=== PATIENT | male | born 1990 | race Caucasian/White ===

== ENCOUNTER 2017-09-05 08:10 | Emergency (ER) | payer BC, MEDICAID, OTHER ==
[~2017-09-05] VITALS: Ht 180.3 cm; Wt 73.5 kg
[2017-09-05 08:31] VITALS: BP 109/71
[2017-09-05] MEDS ORDERED: CEFTRIAXONE 250 MG ONE (09:16)
[2017-09-05] MEDS ORDERED: AZITHROMYCIN 250 MG TABLET ONE (09:27)
[2017-09-05] MEDS ORDERED: AZITHROMYCIN 250 MG TABLET PO ONE (09:30)
[2017-09-05] MEDS ORDERED: CEFTRIAXONE 250 MG IM ONE (09:30)
[2017-09-05] MEDS ORDERED: AZITHROMYCIN 500 MG TABLET PO ONE (09:30)
[2017-09-05 09:50] LABS: MICROSCOPIC AUTO
[2017-09-05 09:51] LABS: CULTURE INDICATED? YES
== END 2017-09-05 10:26 | disposition home or self-care (01) ==
LOC: ED 10:25
DX: A54.9 Gonococcal infection, unspecified (principal); A56.01 Chlamydial cystitis and urethritis
CPT/HCPCS: 81001; 87086; 96372; 99284; J0696

== ENCOUNTER 2019-09-27 06:14 | Inpatient (IN) | payer MEDICAID, OTHER ==
[~2019-09-27] VITALS: Ht 180.3 cm; Wt 78.0 kg
[2019-09-27] MEDS ORDERED: OLAN5TAB3 PO (06:30)
[2019-09-27] MEDS ORDERED: OLAN10TA3 PO (06:30)
[2019-09-27 06:31] VITALS: BP 113/72
[2019-09-27] MEDS ORDERED: LACTATED RINGERS 1,000 ML IV SCH (06:45)
[2019-09-27] MEDS ORDERED: MIDAZOLAM 1 MG/ML, 2ML ONE (07:42)
[2019-09-27] MEDS ORDERED: FENTANYL PF 100 MCG/2ML ONE (07:42)
[2019-09-27] MEDS ORDERED: LIDOCAINE-MPF 2% ,5ML ONE (07:42)
[2019-09-27] MEDS ORDERED: CEFAZOLIN 1,000 MG ONE ×2 (07:42)
[2019-09-27] MEDS ORDERED: SODIUM CHLORIDE 0.9% PF 10ML ONE (07:43)
[2019-09-27] MEDS ORDERED: PROPOFOL 10 MG/ML, 20ML ONE (07:45)
[2019-09-27] MEDS ORDERED: hydrALAzine 20 MG/ML, 1ML IV PRN (08:00)
[2019-09-27] MEDS ORDERED: PROMETHAZINE 25 MG/ML, 1ML IV PRN (08:00)
[2019-09-27] MEDS ORDERED: EPHEDRINE 50 MG/ML, 1ML IVPush PRN (08:00)
[2019-09-27] MEDS ORDERED: OXYcodone 5 MG/5 ML ORAL.SOL UDC PO PRN (08:00)
[2019-09-27] MEDS ORDERED: MEPERIDINE/PF 25MG/ML,1ML IVPush PRN (08:00)
[2019-09-27] MEDS ORDERED: ONDANSETRON 2MG/ML, 2ML IV PRN ×2 (08:00→08:30)
[2019-09-27] MEDS ORDERED: ACETAMINOPHEN 500 MG TABLET PO ONE (08:00)
[2019-09-27] MEDS ORDERED: HYDROmorphone 2 MG/ML, 1ML IVPush PRN (08:00)
[2019-09-27] MEDS ORDERED: GABAPENTIN 300 MG CAPSULE PO ONE (08:00)
[2019-09-27] MEDS ORDERED: LABETALOL 5MG/ML, 20ML IV PRN (08:00)
[2019-09-27] MEDS ORDERED: FENTANYL PF 100 MCG/2ML IV PRN (08:00)
[2019-09-27] MEDS ORDERED: KETOROLAC 30 MG/1 ML ONE (08:07)
[2019-09-27] MEDS ORDERED: DEXAMETHASONE 4 MG/ML, 1ML ONE ×2 (08:07)
[2019-09-27] MEDS ORDERED: ONDANSETRON 2MG/ML, 2ML ONE (08:08)
[2019-09-27] MEDS ORDERED: SENNA/DOCUSATE TABLET PO PRN (08:30)
[2019-09-27] MEDS ORDERED: BISACODYL 10 MG SUPP PR PRN (08:30)
[2019-09-27] MEDS ORDERED: MEPERIDINE/PF 25MG/ML,1ML ONE (08:47)
[2019-09-27] MEDS ORDERED: OXYcodone 5 MG/5 ML ORAL.SOL UDC ONE (08:47)
[2019-09-27] MEDS: ACETAMINOPHEN 325 MG TABLET PO PRN ×2 (13:32→20:41)
[2019-09-27] MEDS: MULTIVITAMINS/MINERALS TABLET PO SCH (13:33)
[2019-09-27] MEDS: DOCUSATE 100 MG CAPSULE PO SCH ×2 (13:33→20:41)
[2019-09-27 14:11] VITALS: BP 119/62
[2019-09-27] MEDS: KETOROLAC 30 MG/1 ML IV SCH (16:40)
[2019-09-27] MEDS: CEFAZOLIN PMX 1GM/50ML 50 ML IVPB SCH (16:40)
[2019-09-27 19:25] VITALS: BP 108/86
[2019-09-27] MEDS ORDERED: OLANZAPINE 5 MG TABLET ONE (20:37)
[2019-09-27] MEDS: OLANZAPINE 10 MG TABLET PO SCH (20:42)
[2019-09-27 23:31] VITALS: BP 96/53
[2019-09-28] MEDS: KETOROLAC 30 MG/1 ML IV SCH (00:09)
[2019-09-28] MEDS: CEFAZOLIN PMX 1GM/50ML 50 ML IVPB SCH ×2 (00:09→08:21)
[2019-09-28 04:06] VITALS: BP 102/61
[2019-09-28] MEDS: ACETAMINOPHEN 325 MG TABLET PO PRN (06:06)
[2019-09-28] MEDS: ENOXAPARIN 40 MG/0.4 ML SQ SCH (06:06)
[2019-09-28 06:48] VITALS: BP 113/52
[2019-09-28] MEDS: MULTIVITAMINS/MINERALS TABLET PO SCH (08:21)
[2019-09-28] MEDS: OLANZAPINE 5 MG TABLET PO SCH (08:21)
[2019-09-28] MEDS: DOCUSATE 100 MG CAPSULE PO SCH ×2 (08:21→20:18)
[2019-09-28] MEDS ORDERED: KETOROLAC 30 MG/1 ML IV ONE (09:00)
[2019-09-28 13:27] VITALS: BP 106/50
[2019-09-28 19:16] VITALS: BP 124/63
[2019-09-28] MEDS: OLANZAPINE 10 MG TABLET PO SCH (20:18)
[2019-09-29 01:29] VITALS: BP 111/70
[2019-09-29] MEDS: ENOXAPARIN 40 MG/0.4 ML SQ SCH (05:24)
[2019-09-29 06:50] VITALS: BP 121/70
[2019-09-29] MEDS: DOCUSATE 100 MG CAPSULE PO SCH ×2 (09:10→20:03)
[2019-09-29] MEDS: OLANZAPINE 5 MG TABLET PO SCH (09:10)
[2019-09-29] MEDS: MULTIVITAMINS/MINERALS TABLET PO SCH (09:10)
[2019-09-29] MEDS ORDERED: ACET500T76 PO (12:17)
[2019-09-29] MEDS ORDERED: TRAM50TA2 PO (12:19)
[2019-09-29 12:45] VITALS: BP 122/75
[2019-09-29] MEDS: ACETAMINOPHEN 325 MG TABLET PO PRN (14:20)
[2019-09-29 18:42] VITALS: BP 116/65
[2019-09-29] MEDS: OLANZAPINE 10 MG TABLET PO SCH (20:03)
[2019-09-30 01:34] VITALS: BP 106/67
[2019-09-30] MEDS: ENOXAPARIN 40 MG/0.4 ML SQ SCH (05:55)
[2019-09-30 06:46] VITALS: BP 122/82
[2019-09-30] MEDS: ACETAMINOPHEN 325 MG TABLET PO PRN ×2 (07:33→11:46)
[2019-09-30] MEDS: OLANZAPINE 5 MG TABLET PO SCH (07:33)
[2019-09-30] MEDS: MULTIVITAMINS/MINERALS TABLET PO SCH (07:33)
[2019-09-30] MEDS: DOCUSATE 100 MG CAPSULE PO SCH (07:34)
[2019-09-30 13:44] VITALS: BP 113/64
[2019-09-30 16:58] VITALS: BP 126/67
== END 2019-09-30 17:45 | disposition home or self-care (01) | DRG 465 ==
LOC: OUT 06:14 → 4NE 08:26 → OUT 23:12
PROVIDERS: ADMIT Orthopaedic Surgery; ATTEND Orthopaedic Surgery
PROC: 0JBR0ZZ Excision of Left Foot Subcutaneous Tissue and Fascia, Open Approach (ICD-10-PCS; principal; 2019-09-27 08:00)
DX: S92.002B Unspecified fracture of left calcaneus, initial encounter for open fracture (principal); X58.XXXA Exposure to other specified factors, initial encounter; Y93.89 Activity, other specified; Y92.89 Other specified places as the place of occurrence of the external cause; Y99.8 Other external cause status
CPT/HCPCS: 97162; G0378; J0690; J1100; J1650; J1885; J2250; J2405; J2704; J3010; J2175; J7120